=== PATIENT | female | born 1990 | race Caucasian/White ===

== ENCOUNTER → 2020-10-20 08:06 | Outpatient (BNVA) | payer OTHER, SELFPAY | PROVIDERS: Visit Provider Advanced Practice Midwife ==

== ENCOUNTER 2022-12-19 09:08 | Outpatient (AMB) | payer OTHER, SELFPAY ==
--- NOTE | 2022-12-19 09:18 | MHC.OFFVIS ---
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 Scribed for BROCK Leyva by Jennifer Torres medical insurance coder, on 12/19/2022 at 9:38 am EST. Call Center Rn Required: No Information Interpreted: non-clinical & clinical Aerodynamic Consultant: Aerodynamic Consultant Present (Aidyn) Allergies No Known Allergies Allergy (Verified 12/19/22 09:22) Is last menstrual period known: Yes Last menstrual period: 10/06/22 Post menopausal: No HPI HPI Comments History of Present Illness Details She is a premenopausal woman presenting for annual exam. She admits to eating healthy and tries to stay active with exercise. Planning future , stopped taking BC in September and hasn't had her period, only withdrawal bleed at that time. Menarche age 16, started OCP's age 17 until September for painful cycles. Unsure of cycle history baseline. Is interested in conceiving and took a at home test; neg. Currently sexually active. Does not take PNV; only probiotics. Denies pelvic pain, hirsutism, vaginal itching and irritation. Admits to acne STD screening offered; she declines. Denies family hx of breast, colon and ovarian cancer. Last pap smear 10/27/19. 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 Sexual orientation: Straight/Heterosexual Gender identity: Female Female Reproductive History Menstrual Age of Menarche: 17 Duration of menses: 3-5 days Date of last menstrual period: 10/06/22 control method: none Total pregnancies: 0 Date of last pap smear: 10/27/19 (negative) Physical Exam Vital Signs: Last Vital Signs BP 104/62 12/19/22 09:20 BMI result Body Mass Index 26.5 Const General: cooperative, healthy appearing, no acute distress, well developed and alert Orientation/consciousness: patient oriented x3 HEENT Head: Yes normal to inspection Eyes General: appearance normal, both eyes and all related structures Neck Neck: Yes normal visual inspection Thyroid: Thyroid normal Chest Chest palpation & inspection: normal inspection of the chest Breast/axilla inspection: normal inspection of the breasts (no puckering, dimpling, peau de orange, retraction, discharge, masses) Breast/axilla palpation: normal palpation of the breasts Resp Effort & Inspection: normal respiratory effort GI Inspection: Yes normal to inspection Palpation (GI): Soft to palpation (to palpation) Rectal Exam - Female: deferred General: Yes bladder normal to inspection External Female Exam: normal external appearance and normal appearance of the urethra Speculum Exam - Vagina: normal appearance of the vagina, normal palpation and normal vaginal discharge Speculum Exam - Cervix: normal appearance of the cervix and normal palpation Bimanual exam- vagina & uterus: normal palpation and normal palpation Bimanual Exam- Adnexa, other: normal adnexae and no masses Skin General skin exam: no rashes or lesions noted Neuro General: patient oriented x3 Cognition (Neuro): normal cognition Extrem General: Yes normal to inspection Psych Attitude: cooperative Thought process: Normal thought process present Assessment & Plan Assessment & Plan (1) Encounter for well woman exam: Code(s): Z01.419 - Encounter for gynecological examination (general) (routine) without abnormal findings Plan: Discussed: Current recommendations for pap smears per ASCCP guidelines Breast awareness and periodic self breast exams. Maintaining a healthy lifestyle including a well balanced diet and routine exercise. Discussed workup including labs and US to rule out PCOS. She is agreeable to plan. Labs and US ordered today. Will await results and treat accordingly. Return in 2 weeks for test results. Contact office if she has her menses. Provera use. Instructed to start PNV. Rx sent to pharmacy. All of her questions and concerns were addressed to the best of my ability. RTO in one year for AG. (2) Irregular menses: Code(s): N92.6 - Irregular menstruation, unspecified Orders: Orders 17 Hydroxyprogesterone Today L70.9 - Acne, unspecified, N92.6 - Irregular menstruation, unspecified DHEA Sulfate Today L70.9 - Acne, unspecified, N92.6 - Irregular menstruation, unspecified Follicle Stimulating Hormone Today L70.9 - Acne, unspecified, N92.6 - Irregular menstruation, unspecified, R23.2 - Flushing HCG Quantitative Today L70.9 - Acne, unspecified, N92.6 - Irregular menstruation, unspecified Prolactin Today L70.9 - Acne, unspecified, N92.6 - Irregular menstruation, unspecified Testosterone, Free/Total Today L70.9 - Acne, unspecified, N92.6 - Irregular menstruation, unspecified Thyroid Stimulating Hormone Today L70.9 - Acne, unspecified, N92.6 - Irregular menstruation, unspecified US pelvic and transvaginal Today L70.9 - Acne, unspecified, N92.6 - Irregular menstruation, unspecified Pap Smear Today Z01.419 - Encounter for gynecological examination (general) (routine) without abnormal findings Medications: New PNV,calcium [id number] acid 27 mg iron- 1 mg ( Vitamins Plus Low Iron) 1 tab PO DAILY 90 tabs 4RF Coding Level of Care Code Est Pt Prev Care 18-39y(23532) Diagnoses Encounter for well woman exam Z01.419 Irregular menses N92.6
[2022-12-19 09:20] VITALS: BP 104/62; BMI 26.5
== END 2022-12-19 09:54 | disposition home or self-care (01) ==
LOC: HO.HWS 09:08
PROVIDERS: PCP Internal Medicine; Visit Provider Advanced Practice Midwife
DX: Z01.419 Encounter for gynecological examination (general) (routine) without abnormal findings (principal); N92.6 Irregular menstruation, unspecified
CPT/HCPCS: 99395

== ENCOUNTER 2022-12-19 09:08 | Outpatient (REF) | payer OTHER, SELFPAY | END 2022-12-19 09:09 | disposition home or self-care (01) | LOC: HO.LNP 09:08 | PROVIDERS: PCP Internal Medicine; Visit Provider Advanced Practice Midwife | DX: Z01.419 Encounter for gynecological examination (general) (routine) without abnormal findings (principal); N92.6 Irregular menstruation, unspecified | CPT/HCPCS: 88142 ==

== ENCOUNTER 2022-12-19 10:00 | Outpatient (REF) | payer OTHER, SELFPAY ==
[2022-12-19 15:10] LABS: HCG Quantitative < 2 mIU/mL
[2022-12-19 15:21] LABS: Thyroid Stimulating Hormone 1.04 uIU/mL (0.32-4.0)
[2022-12-21 09:13] LABS: DHEA Sulfate 118 mcg/dL (14-349); Follicle Stimulating Hormone 6.8 mIU/mL; Prolactin 8.1 ng/mL
[2022-12-26 14:43] LABS: Testosterone, Free 1.2 pg/mL (0.1-6.4); Testosterone, Total 15 ng/dL (2-45)
== END 2022-12-19 10:01 | disposition home or self-care (01) ==
LOC: HO.LAB 10:00
PROVIDERS: PCP Internal Medicine; Visit Provider Advanced Practice Midwife
DX: L70.9 Acne, unspecified (principal); N92.6 Irregular menstruation, unspecified; R23.2 Flushing
CPT/HCPCS: 36415; 82627; 83001; 83498; 84146; 84402; 84403; 84443; 84702

== ENCOUNTER 2022-12-27 16:20 | Outpatient (REF) | payer OTHER, SELFPAY ==
--- NOTE | ~2022-12-27 | US_ITS ---
EXAMINATION: US PELVIS CLINICAL INFORMATION: Irregular menstruation. COMPARISON: None available. TECHNIQUE: Ultrasound of the pelvis is performed using both transabdominal and transvaginal transducers along with Doppler. Transvaginal imaging is performed due to inadequate visualization transabdominally. FINDINGS: Uterus: The uterus is anteverted and measures 8.2 x 3.2 x 4.2 cm. Nabothian cysts. The double wall endometrial thickness is 5 mm. The uterus is smooth in contour and has normal myometrial echogenicity. No visible fibroid. Adnexa: Both ovaries are visualized. There is normal color flow to the adnexa. There is no ovarian torsion. There is no pelvic ascites or fluid collection. Right ovary measures 2.4 x 1.5 x 1.5 cm. Volume 2.8 mL. Left ovary measures 2.8 x 1.6 x 1.3 cm. Volume 3.1 mL. 1.1 cm corpus luteum. Trace free fluid around the left ovary is likely physiologic. No follow-up imaging is recommended. US/US pelvic and transvaginal IMPRESSION: The endometrial stripe is normal in thickness. The uterus and ovaries appear normal.
== END 2022-12-27 16:21 | disposition home or self-care (01) ==
LOC: HO.US 16:20
PROVIDERS: Visit Provider Advanced Practice Midwife
DX: N92.6 Irregular menstruation, unspecified (principal); L70.9 Acne, unspecified
CPT/HCPCS: 76830; 76856

== ENCOUNTER 2023-01-01 07:46 | Outpatient (AMB) | payer OTHER, SELFPAY ==
--- NOTE | 2023-01-01 07:46 | A.OFFVIS_ITS ---
Intake Intake Visit Reasons: TV Labs results Intake Note: cell # [phone] The patient agreed to use of a medical lab director during this encounter. Scribed for BROCK Leyva by Jennifer Torres, medical lab director, on 01/01/2023 at 8:00 am EST. Allergies No Known Allergies Allergy (Verified 01/01/23 07:47) Is last menstrual period known: Yes Last menstrual period: 10/06/22 HPI HPI Comments History of Present Illness Details Doximity live video 8:00 am - 8:07 am. Phone Call due to Covid-19 Pandemic. Video was utilized. She presents via phone/live video to discuss lab results regarding irregular menses. LMP 10/06/22. Hx of irregular menses. Menarche age 16, strted BC age 17 due to p ainful menses, unsure of baseling for cycle history with intermediate accountant BC use. Stopped taking Faye BC in August, has not had a menses since September. She is taking PNV. test was negative last visit. No changes in stress levels or recent surgeries. 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 Sexual orientation: Straight/Heterosexual Gender identity: Female Female Reproductive History Menstrual Age of Menarche: 17 Date of last menstrual period: 10/06/22 Physical Exam Const General: cooperative, healthy appearing, comfortable, no acute distress, well developed, alert and awake Results Reviewed Results Reviewed: Laboratory Tests 12/19/22 12/19/22 12/19/22 10:18 10:18 10:18 TSH 1.04 FSH 6.8 Prolactin 8.1 Total Testosterone 15 Fr Testosterone Dialys 1.2 DHEA Sulfate 118 Beta HCG, Quant < 2 17-Hydroxyprogesterone 21 Assessment & Plan Assessment & Plan (1) Irregular menses: Code(s): N92.6 - Irregular menstruation, unspecified Plan: Discussed: Lab results; all normal. Recheck home test then start Provera. RX sent to pharmacy. Referral sent to [facility] infertility specialist; call insurance for coverage. Monitor menses with Naveen pau and can also use ovulation predictor kits. All of her questions and concerns were addressed to the best of my ability and shared decision making. She is agreeable to plan of care. (2) Encounter to discuss test results: Code(s): Z71.2 - Person consulting for explanation of examination or test findings Orders: Referrals Infertility Reproductive Referral (female) N92.6 - Irregular menstruation, unspecified Medications: New medroxyprogesterone (Provera) 10 mg PO DAILY 10 tabs 0RF Telehealth Telehealth Location of provider rendering services: practice address Location of patient: other Patient Identification confirmed using: Name, : Yes Telehealth method: video Patient verbally consented to treatment: Yes Patient verbally consented to billing insurance company: Yes Patient informed of any privacy concerns related to visit: Yes Coding Level of Care Code Tele Est Pt Level 3 (75253) Diagnoses Irregular menses N92.6 Encounter to discuss test results Z71.2
== END 2023-01-01 08:27 | disposition home or self-care (01) ==
LOC: HO.HWS 07:46
PROVIDERS: PCP Internal Medicine; Visit Provider Advanced Practice Midwife
DX: N92.6 Irregular menstruation, unspecified (principal); Z71.2 Person consulting for explanation of examination or test findings
CPT/HCPCS: 99213

== ENCOUNTER → 2023-01-01 07:46 | Outpatient (BNVA) | payer OTHER, SELFPAY | PROVIDERS: PCP Internal Medicine; Visit Provider Advanced Practice Midwife ==

== ENCOUNTER 2023-07-18 14:27 | Outpatient (REF) | payer OTHER, SELFPAY ==
--- NOTE | ~2023-07-18 | US_ITS ---
EXAMINATION: US OBSTETRICAL ULTRASOUND CLINICAL INFORMATION: Irregular menses; for confirmation of viability. COMPARISON: Pelvic ultrasound dated 12/30/2022. LMP: 05/25/2023. Gestational age by maternal dates is 7 weeks and 5 days. Estimated date of delivery by maternal dates is 02/24/2024. TECHNIQUE: Ultrasound of the maternal pelvis is performed using transabdominal transducer. M-mode Doppler is also performed. FINDINGS: There is a single intrauterine gestational sac with visible yolk sac, embryo/fetus, and cardiac activity. There is no significant subchorionic hemorrhage or hematoma. HR: 120 beats per minute. CRL (crown rump length): 0.51 cm (6 weeks and 2 days +/- 4 days). FABIO (estimated date of delivery): 03/10/2024 +/- 4 days. MATERNAL ADNEXA: The right maternal ovary measures 2.7 x 1.4 x 1.5 cm. The left maternal ovary measures 4.0 x 3.3 x 4.2 cm. The left ovary contains a 3.4 x 2.6 x 2.9 cm benign, simple cyst, for which no imaging follow-up is recommended. There is no significant maternal adnexal mass. No maternal pelvic ascites. US/US OB <= 14 weeks fetus IMPRESSION: 1. Single intrauterine gestation with ultrasound gestational age of 6 weeks and 2 days +/- 4 days. 2. Estimated date of delivery is 03/10/2024 +/- 4 days. 3. No maternal adnexal mass or pelvic ascites.
== END 2023-07-18 14:28 | disposition home or self-care (01) ==
LOC: HO.US 14:27
PROVIDERS: PCP Internal Medicine; Visit Provider Advanced Practice Midwife
DX: Z34.91 Encounter for supervision of normal pregnancy, unspecified, first trimester (principal); Z3A.01 Less than 8 weeks gestation of pregnancy
CPT/HCPCS: 76801

== ENCOUNTER 2023-08-08 14:26 | Outpatient (AMB) | payer OTHER, SELFPAY ==
[2023-08-08 14:37] VITALS: BP 102/66; BMI 27.1
--- NOTE | 2023-08-08 14:37 | A.OFFVIS_ITS ---
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 That dating ultrasound was done on July 18 which yielded a of 6 weeks and 2 days yielding an FABIO of 10 9 24 which was 1 week different from her LMP FABIO I told her that we would probably use the FABIO by ultrasound in this case. She had a history of irregular periods before she went on pills for many many many years and then when she went off the pills her periods did not return for a while but they did return in December and then she had a referral to [facility] and went and had 1 visit there and was just starting the process just to see if she was healthy though she really was hoping not to go through all of the infertility process. 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 She has come to [facility] before and has seen Juana Vaca for all of her rotoprinter visits. Her intention was to come here and then deliver at [facility]. Discussed that there will be many ultrasounds and tests that need to be done and that timing of these is important and needs to be ordered soon so that balls do not get dropped. Her 's genetic testing indicated that there were some issues that if she also showed the same genetic issues there would be important issues to discuss genetically. 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 In addition I am placing the order for the nuchal translucency ultrasound at 12 weeks I also reviewed all the other practices at [facility] and that she also has the [facility] of [facility] or [facility] practice as well but given that she told me about the genetics issue at the very least she needs to see [facility] for consultation and get the screening process started. Her next visit will be with the RNs for the intake and constance del valleroro can be with the provider of her choice for the OB intake visit. At the end of the visit I asked her permission if I could see if I could auscultate heart and I was able to hear it at 9 weeks and 3 days. She was happy to record it. She feels she eats well and she exercise and works out every morning though she has been more tired she has not having any issues with constipation and the nausea is tolerable she just sleeps a lot. 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 Sexual orientation: Straight/Heterosexual Gender identity: Female Female Reproductive History Menstrual Age of Menarche: 17 Duration of menses: 6-7 days Date of last menstrual period: 05/25/23 control method: none Total pregnancies: 1 Date of last pap smear: 12/24/22 (negative) History of abnormal pap smear: No Physical Exam Vital Signs: Last Vital Signs BP 102/66 08/08/23 14:37 BMI result Body Mass Index 27.1 Results AMB Test Urine AMB Test Urine Positive Last Edit by LAURITA Watson on 08/08/23 14:45 Results Reviewed Results Reviewed: Laboratory Last Values [facility] Positive 08/08/23 14:45 Patient: Luna Carlson MR#: [id number] : 1990 Acct:[id number] Age/Sex: 32 / F ADM Date: 07/18/23 Loc: HO.US Attending Dr: Juana Vaca CNM Ordering Physician: Juana Vaca CNM Date of Service: 07/18/23 Procedure(s): US OB <= 14 weeks fetus Accession Number(s): [id number] cc: Juana Vaca CNM; Carly Gamez MD~ EXAMINATION: US OBSTETRICAL ULTRASOUND CLINICAL INFORMATION: Irregular menses; for confirmation of viability. COMPARISON: Pelvic ultrasound dated 12/30/2022. LMP: 05/25/2023. Gestational age by maternal dates is 7 weeks and 5 days. Estimated date of delivery by maternal dates is 02/24/2024. TECHNIQUE: Ultrasound of the maternal pelvis is performed using transabdominal transducer. M-mode Doppler is also performed. FINDINGS: There is a single intrauterine gestational sac with visible yolk sac, embryo/fetus, and cardiac activity. There is no significant subchorionic hemorrhage or hematoma. HR: 120 beats per minute. CRL (crown rump length): 0.51 cm (6 weeks and 2 days +/- 4 days). FABIO (estimated date of delivery): 03/10/2024 +/- 4 days. MATERNAL ADNEXA: The right maternal ovary measures 2.7 x 1.4 x 1.5 cm. The left maternal ovary measures 4.0 x 3.3 x 4.2 cm. The left ovary contains a 3.4 x 2.6 x 2.9 cm benign, simple cyst, for which no imaging follow-up is recommended. There is no significant maternal adnexal mass. No maternal pelvic ascites. US/US OB <= 14 weeks fetus IMPRESSION: 1. Single intrauterine gestation with ultrasound gestational age of 6 weeks and 2 days +/- 4 days. 2. Estimated date of delivery is 03/10/2024 +/- 4 days. 3. No maternal adnexal mass or pelvic ascites. Dictated By: Johnathon Alvarez MD Signed By: <Electronically signed by Johnathon Alvarez MD in OV> 07/22/23 0959 DD/ 1449 Assessment & Plan Assessment & Plan (1) Early stage of : Comment: Patient had been referred to [facility] she went and before full testing was done she became . Ultrasound for dating ordered by BM done 07/18/2023 yielded 6 weeks and to sevens with an FABIO of 03/10/2024. Patient states that her 's genetic testing revealed some issues for which she would need to have testing and counseling as well. We will refer to genetic counseling in order panoramic and nuchal translucency ultrasound a sap so done in a timely fashion. Patient may be seeking care at [facility]. Code(s): Z34.90 - Encounter for supervision of normal , unspecified, unspecified trimester (2) Irregular menses: Code(s): N92.6 - Irregular menstruation, unspecified Plan Patient is here as a consult visit she had spoken with 1 of the nurses and then Juana ordered an ultrasound for dating. That dating ultrasound was done on July 18 which yielded a of 6 weeks and 2 days yielding an FABIO of 10 9 24 which was 1 week different from her LMP FABIO I told her that we would probably use the FABIO by ultrasound in this case. She had a history of irregular periods before she went on pills for many many many years and then when she went off the pills her periods did not return for a while but they did return in December and then she had a referral to [facility] and went and had 1 visit there and was just starting the process just to see if she was healthy though she really was hoping not to go through all of the infertility process. 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 She has come to [facility] before and has seen Juana Vaca for all of her rotoprinter visits. Her intention was to come here and then deliver at [facility]. Discussed that there will be many ultrasounds and tests that need to be done and that timing of these is important and needs to be ordered soon so that balls do not get dropped. Her 's genetic testing indicated that there were some issues that if she also showed the same genetic issues there would be important issues to discuss genetically. 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 In addition I am placing the order for the nuchal translucency ultrasound at 12 weeks I also reviewed all the other practices at [facility] and that she also has the option of seeking out a [facility] practice or [facility] practice as well but given that she told me about the genetics issue at the very least she needs to see [facility] for consultation and get the screening process started. Her next visit will be with the RNs for the intake and thereafter can be with the provider of her choice for the OB intake visit. At the end of the visit I asked her permission if I could see if I could auscultate heart and I was able to hear it at 9 weeks and 3 days. She was happy to record it. She feels she eats well and she exercise and works out every morning though she has been more tired she has not having any issues with constipation and the nausea is tolerable she just sleeps a lot. ----I reviewed her feelings about the , I reviewed her menstrual hx, and ob hx, and past medical hx. I reviewed goals of eating well, healthy, avoiding toxins and medications. Goals of moderate wt gain, and continuing to be active. Walking is good exercise. She should speak to any other prescribing providers involved in her care to see if any meds that are prescribed should be continued. drinking plenty of water is a good goal. I reviewed normal early symptoms, and next steps involved in care here. I reviewed that now deliveries are taking place elsewhere. Patient had had irregular periods many many years ago had been on control pills for years and when she went off control pills did not get her regular. Then she started getting her period in December and they were became normal from December through June. She was just in the process of starting testing at [facility] and her had already gotten the genetic screening and she had not yet done it and she became she was not really sure if it would continue just because she is cautious and her mother lost a at 18 weeks. So she was waiting to see how things would go. She called our office and spoke with the nurse and then an ultrasound was ordered that was done on 07/18/2023 that gave an FABIO at least a week different from her suspected FABIO given this we will use the ultrasound FABIO of 03/10/2024 which makes her 9 weeks and 3 days today. She says her had gotten the genetic screening part and there were some things that showed up that indicated that if she had the same genetic issues they would need to be discussed at genetic counseling. Given this and the fact that she is now 9 weeks and 3 days and time is of the essence I am going to refer her to [facility] genetic counseling and order a panoramic for her and a nuchal translucency and next visit will be with the RN for the intake and then a PE with whoever she chooses to see I am also giving her a list of the [facility] practices as she had already thought about starting care here and then going to [facility]. 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
== END 2023-08-08 15:52 | disposition home or self-care (01) ==
LOC: HO.HWSM 14:26
PROVIDERS: PCP Internal Medicine; Visit Provider Advanced Practice Midwife
DX: Z34.90 Encounter for supervision of normal pregnancy, unspecified, unspecified trimester (principal); N92.6 Irregular menstruation, unspecified
CPT/HCPCS: 99213

== ENCOUNTER → 2023-08-08 14:26 | Outpatient (BNVA) | payer OTHER, SELFPAY | PROVIDERS: PCP Internal Medicine; Visit Provider Advanced Practice Midwife ==

== ENCOUNTER 2023-08-14 13:59 | Outpatient (REF) | payer OTHER, SELFPAY ==
[2023-08-14 15:36] LABS: Hematocrit 33.6 % (37.0-47.0); Hemoglobin 11.5 g/dl (12.0-16.0); Mean Corpuscular HGB Conc 34.2 g/dl (31.0-35.0); Mean Corpuscular Hemoglobin 29.5 pg (27.0-33.0); Mean Corpuscular Volume 86.2 fL (80.0-98.0); Mean Platelet Volume 10.7 fL (9.4-12.3); Platelet Count 336 X10*3/uL (160-400); Red Cell Distribution Width 12.4 % (11.0-16.0); White Blood Count 13.4 X10*3/uL (4.8-10.8)
[2023-08-14 16:01] LABS: Amphetamine Screen Urine Not Detected (Not Detect); Barbiturates, Urine Not Detected (Not Detect); Cannabinoid Screen Urine Not Detected (Not Detect); Cocaine Screen Urine Not Detected (Not Detect); Fentanyl, urine Not Detected (Not Detect); Opiate Screen Urine Not Detected (Not Detect); Phencyclidine Screen Urine Not Detected (Not Detect)
[2023-08-14 16:19] LABS: Benzodiazepines Screen Urine Not Detected (Not Detect)
[2023-08-15 03:49] LABS: Syphilis Screen Nonreactive (Nonreactive)
[2023-08-15 04:31] LABS: HBsAGNum1 0.42 S/CO (0.00-0.99); HIV AB/AG Nonreactive (Nonreactive); HIV Num 1 0.04 S/CO (0.00-0.99); Hepatitis B Surface Antigen Negative (Negative); ~HepC Num1 0.06 S/CO (0.00-0.79); ~Hepatitis C Antibody Nonreactive (Nonreactive)
[2023-08-16 03:39] LABS: Rubella IgG Antibody 1.52 Index
[2023-08-26 21:43] LABS: CF Ethnicity NG; Cystic Fibrosis NEGATIVE (NEGATIVE)
== END 2023-08-14 14:00 | disposition home or self-care (01) ==
LOC: HO.LAB 13:59
PROVIDERS: PCP Internal Medicine; Visit Provider Advanced Practice Midwife
DX: Z34.91 Encounter for supervision of normal pregnancy, unspecified, first trimester (principal); Z3A.10 10 weeks gestation of pregnancy; Z79.899 Other long term (current) drug therapy
CPT/HCPCS: 80307; 81220; 85027; 86762; 86780; 86787; 86803; 86850; 86900; 87086; 87340; 87389; 99212

== ENCOUNTER 2023-08-14 13:59 | Outpatient (AMB) | payer OTHER, SELFPAY ==
--- NOTE | 2023-08-14 14:04 | A.OFFVISPN_ITS ---
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 Allergies No Known Allergies Allergy (Verified 08/08/23 14:43) Medication List - Last Reconciled 08/14/23 by Camryn Rodriguez PNV,calcium 84-yhgw-woaha acid 27 mg iron- 1 mg ( Vitamins Plus Low Iron) 1 tab PO DAILY sertraline 50 mg PO DAILY Is last menstrual period known: Yes Last menstrual period: 05/25/23 Post menopausal: No Patient : Yes [facility] Medical History (Updated 08/14/23 @ 14:43 by Camryn Rodriguez) Encounter for supervision of normal first , unspecified trimester Irregular menses History of depression History of anxiety Family History (Updated 08/14/23 @ 14:14 by Camryn Rodriguez) Maternal Grandfather Colon cancer Type 1 diabetes mellitus Family/Other Breast cancer Father Graves disease Mother Acute anxiety Social History (Updated 08/14/23 @ 14:18 by Camryn Rodriguez) Household Members: Spouse Both parents involved: Yes Housing: House Are you a primary nonfarm animal caretaker to a significant other at home: No Do you presently have visiting nurse or other home services: No 75 years or older and lives alone: No Alcohol intake: former Comment: stopped with dx Patient Tobacco Use Status: Never used Tobacco Agree to transfusion: Yes service: No 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 Current occupational exposures/hazards: No Sexual orientation: Straight/Heterosexual Gender identity: Female Female Reproductive History Menstrual Age of Menarche: 16 Duration of menses: 3-5 days Date of last menstrual period: 05/25/23 control method: pills Total pregnancies: 1 Full term: 0 Premature: 0 Number of Living Children: 0 Ab induced: 0 Ab spontaneous: 0 Ectopics: 0 Multiple births: 0 History of abnormal pap smear: No History of STI: No History History 1 Elective abortions 0 Para 0 Spontaneous abortions 0 Hx # Term Pregnancies 0 Ectopic pregnancies 0 Hx # Pregnancies 0 Multiple births 0 History Other: First Education First Trimester Education Checklist Plans/Education - by Trimester Counseled: Yes HIV and other routine tests: discussed Infectious disease exposure: chicken pox immunity discussed and hepatitis risk discussed Influenza vaccine: discussed Nutrition and weight gain counseling: special diet: discussed Sexual activity: discussed Exercise: discussed Tobacco use: No Alcohol use: No Substance use: No Environmental/home/work hazards: discussed Domestic violence: discussed Travel: discussed Seatbelt use: discussed Toxoplasmosis precautions (cats/raw meat): discussed danger signs: Yes education packet: diet and weight gain, fish and mercury intake, caffeine use, exercise and activity, work issues, sexual activity, x-ray exposure, medication use, toxoplasmosis precautions, sauna/hot tub use and dental care Mental health: discussed Questionnaire History History : 1 Visit FABIO Calculator Estimated Delivery Date Method Current WG Current Estimate 03/10/24 Ultrasound #1 10w 1d Other Estimates 02/29/24 LMP (Certain) 11w 4d Expected Delivery Route/Plan OB Visit Log Initial Weight: 138 lb Date -?-?-?-?-?-?-?-?-?-?-?-?- EGA Weight Gest Week Fundal Ht Present FHR move Efface % Edema BP PrePreg We Weight GTT -?-?-?-?-?-?-?-?-?-?-?-?- Glucose LV Protein Blood Type 08/14/23 -?-?-?-?-?-?-?-?-?-?-?-?- 10w 1d 150 lb (+12 lb) 150 l b -?-?-?-?-?-?-?-?-?-?-?-?- Notes Visit Date: 08/14/23 Last Updated by: Camryn Coombseric Eason 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 She is a 32 yo with LMP 05/25/23 and FABIO 03/03/24 GA 11w2d. US on 07/18/23 at 6w2d gives FABIO 03/10/24 and [id number]. Pt was given the folder. We discussed danger signs, MD availability 23/12 and how to reach on-call provider on weekends, holidays and nights for urgent issues. Pt advised all deliveries will be at [facility] since our [facility] has closed. In addition, ultrasounds will also take place at [facility]. labs were ordered and pt will have them done today. Next visit will be for OB PE. Pt did sign records release as she is thinking about transferring her care to [facility]. She does not know which practice at [facility] at this time. Yumi is scheduled for Genetics consult at [facility] 08/19/23 @ 1400 which she is aware of already. Pt and her were seen by [facility] for one visit. Her started genetic testing and some issues were found. Yumi found out she was before she started testing and was never tested. Letter from [facility] in pt's chart. First trimester education reviewed. Pt verbalizes understanding and agrees with plan. No further questions. Initial Infection History & Risk Profile History of STDs: No HIV risk evaluation: low risk Hepatitis B risk evaluation: low risk Patient or partner has history of Genital Herpes: No Varicella/chicken pox status: previous disease Genetic Screening & Turf Grower Genetic Screening/Teratology Counseling - Includes patient, baby's father, or anyone in either family with: 1. Patient's age 35 years or older as of estimated date of delivery: No 2. Thalassemia (Belgian, Yakut, Mediterranean, or Background); MCV less than 80: No 3. Neural Tube Defect (Meningomyelocele, Spina Bifida, or Anencephaly): No 4. Congenital Heart Defect: No 5. Down Syndrome: No 6. Adalberto-Sachs (Ashkenazi Baptist, Cajun, Albanian Fijian): No 7. Hue Disease (Ashkenazi Baptist): No 8. Familial Dysautonomia (Ashkenazi Baptist): No 9. Sickle Cell Disease or Trait (): No 10. Hemophilia or other blood disorders: No 11. Muscular Dystrophy: No 12. Cystic Fibrosis: No 13. Horace's Chorea: No 14. Intellectual disability/Autism: No 15. Other inherited genetic or chromosomal disorder: No 16. Maternal Metabolic Disorder (EG,TYPE 1 Diabetes, PKU): No 17. Patient or baby's father had a child with defects not listed above: No 18. Recurrent loss or a stillbirth: No 19. Medications (including supplements, vitamins, herbs or otc drugs)/illicit/recreational drugs/alcohol since last menstrual period: No 20. Any other: No Infection History 1. Live with someone with TB or exposed to TB: No 2. Rash or viral illness since last menstrual period: No 3. Hepatitis B,C: No Other (see comments) Source: [employer] Coding Level of Care Code Established Pt [place] Patient Type Established History Problem Focused Medical Decision Making Low Complexity Diagnoses Encounter for supervision of normal first , unspecified trimester Z34.00 Time Spent (min) 60 Assessment & Plan Assessment & Plan (1) Encounter for supervision of normal first , unspecified trimester: Code(s): Z34.00 - Encounter for supervision of normal first , unspecified trimester Category: Medical Orders: Orders Complete Blood Count no Diff Today Z32.01 - Encounter for test, result positive, Z34.00 - Encounter for supervision of normal first , unspecified trimester Hepatitis C Antibody Today Z32.01 - Encounter for test, result positive, Z34.00 - Encounter for supervision of normal first , unsp ecified trimester Screen Today Z32.01 - Encounter for test, result positive, Z34.00 - Encounter for supervision of normal first , unspecified tri mester Rubella IgG Antibody Today Z32.01 - Encounter for test, result positive, Z34.00 - Encounter for supervision of normal first , unspecified trimester Syphilis Screen Today Z32.01 - Encounter for test, result positive, Z34.00 - Encounter for supervision of normal first , unspecified trimester Hepatitis B Surface Antigen Today Z32.01 - Encounter for test, result positive, Z34.00 - Encounter for supervision of normal first , unspecified trimester Varicella IgG Antibody Today Z32.01 - Encounter for test, result positive, Z34.00 - Encounter for supervision of normal first , unspecified trimester Urine Culture Today Z32.01 - Encounter for test, result positive, Z34.00 - Encounter for supervision of normal first , unspecified trimester HIV Ab/Ag Today Z32.01 - Encounter for test, result positive, Z34.00 - Encounter for supervision of normal first , unspecified trimester Drug Screen Urine Today Z32.01 - Encounter for test, result positive, Z34.00 - Encounter for supervision of normal first , unspecified trimester CF Carrier Screen Today Z32.01 - Encounter for test, result positive, Z34.00 - Encounter for supervision of normal first , unspecified trimester
[2023-08-14 14:08] VITALS: BMI 27.4
== END 2023-08-14 15:12 | disposition home or self-care (01) ==
LOC: HO.HWS 13:59
PROVIDERS: PCP Internal Medicine; Visit Provider Advanced Practice Midwife
DX: Z34.00 Encounter for supervision of normal first pregnancy, unspecified trimester (principal)
CPT/HCPCS: 25942

== ENCOUNTER 2023-08-26 14:38 | Outpatient (REF) | payer OTHER, SELFPAY ==
[2023-08-27 05:34] LABS: CT PCR NOT DETECTED (Not Detect.); NG PCR NOT DETECTED (Not Detect.)
[2023-08-27 10:20] LABS: BV Int Neg Control Negative (Negative); BV Int Pos Control Positive (Positive)
== END 2023-08-26 14:39 | disposition home or self-care (01) ==
LOC: HO.LNP 14:38
PROVIDERS: PCP Internal Medicine; Visit Provider Advanced Practice Midwife
DX: Z34.91 Encounter for supervision of normal pregnancy, unspecified, first trimester (principal); Z20.2 Contact with and (suspected) exposure to infections with a predominantly sexual mode of transmission; Z3A.11 11 weeks gestation of pregnancy
CPT/HCPCS: 0353U; 87480; 87510; 87660; 99212

== ENCOUNTER 2023-08-26 14:38 | Outpatient (AMB) | payer OTHER, SELFPAY ==
--- NOTE | 2023-08-26 14:44 | A.OFFVISPN_ITS ---
Intake Vital Signs 08/26/23 14:46 Height 5 ft 2 in Weight 145 lb BMI 26.5 BP 102/54 L Intake Visit Reasons: ob/pe [employer] Required: No Information Interpreted: non-clinical & clinical Equip Tech: Equip Tech Present (Geo) Allergies No Known Allergies Allergy (Verified 08/26/23 14:47) Medication List - Last Reconciled 08/26/23 by Shirley Tobin CNM PNV,calcium 13-dyyh-ijfas acid 27 mg iron- 1 mg ( Vitamins Plus Low Iron) 1 tab PO DAILY sertraline 50 mg PO DAILY Is last menstrual period known: Yes Last menstrual period: 05/25/23 Post menopausal: No Patient : Yes [facility] Medical History (Updated 08/26/23 @ 15:56 by Shirley Tobin CNM) Encounter for supervision of normal first , unspecified trimester Irregular menses History of depression History of anxiety Family History Maternal Grandfather Colon cancer Type 1 diabetes mellitus Family/Other Breast cancer Father Graves disease Mother Acute anxiety Social History Household Members: Spouse Both parents involved: Yes Housing: House Are you a primary care support representative to a significant other at home: No Do you presently have visiting nurse or other home services: No 75 years or older and lives alone: No Alcohol intake: former Comment: stopped with dx Patient Tobacco Use Status: Never used Tobacco Agree to transfusion: Yes service: No 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 Current occupational exposures/hazards: No Sexual orientation: Straight/Heterosexual Gender identity: Female Female Reproductive History Menstrual Age of Menarche: 16 Date of last menstrual period: 05/25/23 control method: none Total pregnancies: 1 Date of last pap smear: 12/24/22 (negative) History History 1 Elective abortions 0 Para 0 Spontaneous abortions 0 Hx # Term Pregnancies 0 Ectopic pregnancies 0 Hx # Pregnancies 0 Multiple births 0 Questionnaire History History : 1 [place] Depression [place] Depression Scale I have been able to laugh and see the funny side of things: As much as I always could I have looked forward with enjoyment to things: As much as I ever did I have blamed myself unnecessarily when things went wrong: Not very often I have been anxious or worried for no reason: Yes, sometimes I have felt scared of panicky for no very good reason at all: No, not so much Things have been getting on top of me: No, most of the time I have coped quite well I have been so unhappy that I have had difficulty sleeping: No, not at all I have felt sad or miserable: No, not at all I have been so unhappy that I have been crying: No, never The thought of harming myself has occurred to me: Never 5 PHQ Assessment Billing PHQ Assessment Tool: PHQ Assessment 87381 Visit FABIO Calculator Estimated Delivery Date Method Current WG Current Estimate 03/10/24 Ultrasound #1 11w 6d Other Estimates 02/29/24 LMP (Certain) 13w 2d Expected Delivery Route/Plan Specific Issues/Plans OB Problem List: 32yr. old ? ? G1 ?P0 ? ? ?LMP: EDC: 03/10/24, ?by 1st tri u/s ? ? ?Blood type: a pos Problem List: 1. Infertility, had just started workup when she got 's genetic screens were positive for 3 issues that she is getting evaluated for a genetics at [facility] currently. They are anxious about the possible results but will see.... Testing: Panorama/and or First Tri screen: ? ?risk (has had genetic counseling and will be getting special screens secondary to partner positive testing with infertility screens) NT scan:pending AFP: FAS: Glucose: early ? 28 wk glucose: ? CBC 1st Tri: ? 28 wk. CBC: GBS: Vaccinations: Flu: Covid: Tdap: Education/Services WIC: CBE: Breast feeding classes: Social Supports/Stressors: Living situation: Supports: Work/school: Transportation: Has her own transportation Labor, and Concerns: Labor support: Plan: Feeding Plans: Is considering breast and bottle discussed considering breast at the start and latch. control: OB Visit Log Initial Weight: 138 lb Date -?-?-?-?-?-?-?-?-?-?-?-?- EGA Weight Gest Week Fundal Ht Present FHR move Efface % Edema BP PrePreg We Weight GTT -?-?-?-?-?-?-?-?-?-?-?-?- Glucose LV Protein Blood Type 08/14/23 -?-?-?-?-?-?-?-?-?-?-?-?- 10w 1d 150 lb (+12 lb) 150 l b -?-?-?-?-?-?-?-?-?-?-?-?- 08/26/23 -?-?-?-?-?-?-?-?-?-?-?-?- 11w 6d 145 lb (+7 lb) 12 170 102/54 145 lb -?-?-?-?-?-?-?-?-?-?-?-?- Notes Visit Date: 08/26/23 Last Updated by: Shirley Tobin CNM Patient is here for a visit at the [facility]. She is here for her OB physical today she has not having any major issues at all she is just tired but she says she is tired person and is tired all the time she has had her thyroid checked in the past many times and it has always a fine. She had the nurse intake visit and she has her nuchal translucency ultrasound scheduled for Friday. As previously discussed at previous visits she had initiated infertility workup and is part of that her had had his genetic blood test done and she had not had hers done yet. His indicated that there was increased risks for some challenges and so she had along with him a genetics consult at [facility] that we arranged and she is going to be getting her blood work done and is awaiting those results she says she has an anxious person and does have anxiety about the possible results especially since some of them can contribute to schizophrenia however she is going to try and not worry about it until she sees if there is something to worry about because if her testing is negative then the will be anything to worry about. She says she is also getting full genetic screening as part of this evaluation so the panorama will not be done through our lab. Accordingly she has not been able to think about where she might want to receive care and delivery because the decision may be made for her depending on the outcomes of any of this genetic evaluation. She will cross that bridge later. I reviewed her normal blood test findings thus far. FHT was strong and steady at 170. Physical exam was within normal limits slightly limited by physical tension with pelvic but within normal limits. Discussed the challenges of awaiting results of testing that can raising anxiety and the lack of control 1 has over outcomes. She is planning on having the same attitude about as well in that she knows it will be mostly out of her control and she is hoping for a healthy mother and baby. We will see her in 4 weeks and by then she will of had her nuchal translucency and genetic testing and follow-up with genetics as well. 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 She is a 32 yo with LMP 05/25/23 and FABIO 03/03/24 GA 11w2d. US on 07/18/23 at 6w2d gives FABIO 03/10/24 and [id number]. Pt was given the folder. We discussed danger signs, MD availability 23/12 and how to reach on-call provider on weekends, holidays and nights for urgent issues. Pt advised all [place] will be [place] [facility] [place] [facility] [place] closed. In addition, ultrasounds will also take place at [facility]. labs were ordered and pt will have them done today. Next visit will be for OB PE. Pt did sign records release as she is thinking about transferring her care to [facility]. She does not know which practice at [facility] at this time. Yumi is scheduled for Genetics consult at [facility] 08/19/23 @ 1400 which she is aware of already. Pt and her were seen by [facility] for one visit. Her started genetic testing and some issues were found. Yumi found out she was before she started testing and was never tested. Letter from [facility] in pt's chart. First trimester education reviewed. Pt verbalizes understanding and agrees with plan. No further questions. Initial Infection History & Risk Profile History of STDs: No HIV risk evaluation: low risk Hepatitis B risk evaluation: low risk Patient or partner has history of Genital Herpes: No Varicella/chicken pox status: previous disease Genetic Screening & Mortgage Broker Genetic Screening/Teratology Counseling - Includes patient, baby's father, or anyone in either family with: 1. Patient's age 35 years or older as of estimated date of delivery: No 2. Thalassemia (Azerbaijani, Ukrainian, Mediterranean, or Background); MCV less than 80: No 3. Neural Tube Defect (Meningomyelocele, Spina Bifida, or Anencephaly): No 4. Congenital Heart Defect: No 5. Down Syndrome: No 6. Adalberto-Sachs (Ashkenazi Jainism, Cajun, Georgian [place]): No 7. Hue Disease (Ashkenazi Jainism): No 8. Familial Dysautonomia (Ashkenazi Jainism): No 9. Sickle Cell Disease or Trait (): No 10. Hemophilia or other blood disorders: No 11. Muscular Dystrophy: No 12. Cystic Fibrosis: No 13. Waldo's Chorea: No 14. Intellectual disability/Autism: No 15. Other inherited genetic or chromosomal disorder: No 16. Maternal Metabolic Disorder (EG,TYPE 1 Diabetes, PKU): No 17. Patient or baby's father had a child with defects not listed above: No 18. Recurrent loss or a stillbirth: No 19. Medications (including supplements, vitamins, herbs or otc drugs)/illicit/recreational drugs/alcohol since last menstrual period: No 20. Any other: No Infection History 1. Live with someone with TB or exposed to TB: No 2. Rash or viral illness since last menstrual period: No 3. Hepatitis B,C: No Other (see comments) Source: [employer] Exam Const Constitutional General: healthy appearing, comfortable, no acute distress, well developed and alert Nutritional Appearance: average body habitus Orientation/consciousness: patient oriented x3 Constitutional Limitations: no limitations HENNE Head: normocephalic Neck Neck: normal visual inspection Chest Chest palpation & inspection: normal inspection of the chest Breast/axilla inspection: normal inspection of the breasts and normal inspection of the axillae Breast/axilla palpation: normal palpation of the breasts and normal palpation of the axillae Resp Effort & Inspection: normal respiratory effort GI Inspection (GI): normal to inspection and No Abdominal wall edema Palpation (GI): Soft to palpation and nontender General Exam: Yes bladder normal to palpation External Female Exam: normal external appearance and normal appearance of the urethra Urethra: normal appearance of the urethra Speculum exam - vagina: normal appearance of the vagina and normal discharge Speculum Exam - Cervix: normal appearance of the cervix and No Cervical tenderness present Bimanual exam- vagina & uterus: normal bimanual exam, normal palpation, uterine size normal, bladder normal to palpation, consistency normal, normal palpation, uterine mobility normal, uterine shape normal, No Cervical tenderness present, non-tender and no cervical motion tenderness Bimanual Exam- Adnexa, other: normal adnexae, no masses, normal and No adnexal tenderness Pelvic Support: normal Coding Level of Care Code Falcon Diagnoses Encounter for supervision of normal first , unspecified trimester Z34.00 Early stage of Z34.90 Irregular menses N92.6 History of anxiety Z86.59 Assessment & Plan Assessment & Plan (1) Encounter for supervision of normal first , unspecified trimester: Code(s): Z34.00 - Encounter for supervision of normal first , unspecified trimester Category: Medical (2) Early stage of : Comment: Patient had been referred to [facility] she went and before full testing was done she became . Ultrasound for dating ordered by BM done 07/18/2023 yielded 6 weeks and to sevens with an FABIO of 03/10/2024. Patient states that her 's genetic testing revealed some issues for which she would need to have testing and counseling as well. We will refer to genetic counseling in order panoramic and nuchal translucency ultrasound a sap so done in a timely fashion. Patient may be seeking care at [facility]. Code(s): Z34.90 - Encounter for supervision of normal , unspecified, unspecified trimester Category: Medical (3) Irregular menses: Code(s): N92.6 - Irregular menstruation, unspecified Category: Medical (4) History of anxiety: Code(s): Z86.59 - Personal history of other mental and behavioral disorders Category: Medical Orders: Orders Bacterial Vaginosis Panel Today Z34.00 - Encounter for supervision of normal first , unspecified trimester CT NG by PCR Today Z34.00 - Encounter for supervision of normal first , unspecified trimester
[2023-08-26 14:46] VITALS: BP 102/54; BMI 26.5
== END 2023-08-26 15:58 | disposition home or self-care (01) ==
LOC: HO.HWSM 14:38
PROVIDERS: PCP Internal Medicine; Visit Provider Advanced Practice Midwife
DX: Z34.00 Encounter for supervision of normal first pregnancy, unspecified trimester (principal); Z34.90 Encounter for supervision of normal pregnancy, unspecified, unspecified trimester; N92.6 Irregular menstruation, unspecified; Z86.59 Personal history of other mental and behavioral disorders
CPT/HCPCS: 25942; 99213

== ENCOUNTER 2023-09-23 13:58 | Outpatient (AMB) | payer OTHER, SELFPAY ==
--- NOTE | 2023-09-23 14:05 | MHC.OFFVISPN ---
Intake Vital Signs 09/23/23 14:10 Height 5 ft 2 in Weight 152 lb BMI 27.8 BP 122/64 Intake Visit Reasons: MARTIN [employer] Manager Required: No Information Interpreted: clinical only Fire Hose Curer: Fire Hose Curer Present Allergies No Known Allergies Allergy (Verified 09/23/23 14:10) Medication List - Last Reconciled 09/23/23 by Shirley Tobin CNM PNV,calcium [id number] acid 27 mg iron- 1 mg ( Vitamins Plus Low Iron) 1 tab PO DAILY sertraline 50 mg PO DAILY Patient : Yes PFSH Medical History (Updated 09/23/23 @ 14:59 by Shirley Tobin CNM) Encounter for supervision of normal first , unspecified trimester Irregular menses History of depression History of anxiety Family History Maternal Grandfather Colon cancer Type 1 diabetes mellitus Family/Other Breast cancer Father Graves disease Mother Acute anxiety Social History Household Members: Spouse Both parents involved: Yes Housing: House Are you a primary zoo caretaker to a significant other at home: No Do you presently have visiting nurse or other home services: No 75 years or older and lives alone: No Alcohol intake: former Comment: stopped with dx Patient Tobacco Use Status: Never used Tobacco Agree to transfusion: Yes Patient : Yes service: No 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 old ? ? G1 ?P0 ? ? ?LMP: EDC: 03/10/24, ?by 1st tri u/s ? ? ?Blood type: a pos Problem List: 1. Infertility, had just started workup when she got 's genetic screens were positive for 3 issues that she is getting evaluated for a genetics at [facility] currently. They are anxious about the possible results but will see.... 2. Please see Genetics consult for many details of carrier risks, for patient and her partner both. Patient has decided that based on this she will transfer care signing record released today. MFM consult together with anatomy scan ordered for 4 weeks from now. Testing: Panorama/and or First Tri screen: ? ?risk (has had genetic counseling and will be getting special screens secondary to partner positive testing with infertility screens) NT scan:pending AFP: FAS: Glucose: early ? 28 wk glucose: ? CBC 1st Tri: ? 28 wk. CBC: GBS: Vaccinations: Flu: Covid: Tdap: Education/Services WIC: CBE: Breast feeding classes: Social Supports/Stressors: Living situation: Supports: Work/school: Transportation: Has her own transportation Labor, and Concerns: Labor support: Plan: Feeding Plans: Is considering breast and bottle discussed considering breast at the start and latch. control: OB Visit Log Initial Weight: 138 lb Date <del>?</del> EGA Weight Gest Week Fundal Ht Present FHR move Efface % Edema BP PrePreg We Weight GTT <del>?</del> Glucose LV Protein Blood Type 08/14/23 <del>?</del> 10w 1d 150 lb (+12 lb) 150 lb <del>?</del> 08/26/23 <del>?</del> 11w 6d 145 lb (+7 lb) 12 170 102/54 145 lb <del>?</del> 09/23/23 <del>?</del> 15w 6d 152 lb (+14 lb) 15 150 122/64 152 lb <del>?</del> Notes Visit Date: 09/23/23 Last Updated by: Shirley Tobin CNM Patient is here alone for her visit at 15 weeks and 6 days. She went to her genetics consult and had lots results reviewed with her. (please see the genetics consult which was scanned in and also includes in addendum from September 17 2023 there are some results still pending fact). 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 It is a treatable condition, and more research is being done. Based on this she has decided that she will transfer care to [facility] and she signing for record released today. She is leaning against amniocentesis and she is discussing it with her . I am ordering an M consult and anatomy scan for about 4 weeks pending her transfer. She herself has already called for an appointment at [facility] what is awaiting that so we will see her again in 4 weeks if the full transfer has not yet been accomplished. We discussed other decision points in the . And also where she may go for pediatric care which she is still thinking about as well as other issues that they will be dealing with if the child is affected like avoiding foods that are high in copper and managing medications etc.. 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 Paper signed today for that she is evidently very good herself. Our OB 4 weeks unless she has transferred. Visit Date: 08/26/23 Last Updated by: Shirley Tobin CNM Patient is here for a visit at the [facility]. She is here for her OB physical today she has not having any major issues at all she is just tired but she says she is tired person and is tired all the time she has had her thyroid checked in the past many times and it has always a fine. She had the nurse intake visit and she has her nuchal translucency ultrasound scheduled for Friday. As previously discussed at previous visits she had initiated infertility workup and is part of that her had had his genetic blood test done and she had not had hers done yet. His indicated that there was increased risks for some challenges and so she had along with him a genetics consult at [facility] that we arranged and she is going to be getting her blood work done and is awaiting those results she says she has an anxious person and does have anxiety about the possible results especially since some of them can contribute to schizophrenia however she is going to try and not worry about it until she sees if there is something to worry about because if her testing is negative then the will be anything to worry about. She says she is also getting full genetic screening as part of this evaluation so the panorama will not be done through our lab. Accordingly she has not been able to think about where she might want to receive care and delivery because the decision may be made for her depending on the outcomes of any of this genetic evaluation. She will cross that bridge later. I reviewed her normal blood test findings thus far. FHT was strong and steady at 170. Physical exam was within normal limits slightly limited by physical tension with pelvic but within normal limits. Discussed the challenges of awaiting results of testing that can raising anxiety and the lack of control 1 has over outcomes. She is planning on having the same attitude about as well in that she knows it will be mostly out of her control and she is hoping for a healthy mother and baby. We will see her in 4 weeks and by then she will of had her nuchal translucency and genetic testing and follow-up with genetics as well. Visit Date: 08/14/23 Last Updated by: Camryn Rodriguez Yumi is here for rn neonatal icu. She is a 32 yo with LMP 05/25/23 and FABIO 03/03/24 GA 11w2d. US on 07/18/23 at 6w2d gives FABIO 03/10/24 and [id number]. Pt was given the folder. We discussed danger signs, MD availability 23/12 and how to reach on-call provider on weekends, holidays and nights for urgent issues. Pt advised all deliveries will be at [facility] since our Birthing Center has closed. In addition, ultrasounds will also take place at [facility]. labs were ordered and pt will have them done today. Next visit will be for OB PE. Pt did sign records release as she is thinking about transferring her care to [facility]. She does not know which practice at [facility] at this time. Yumi is scheduled for Genetics consult at [facility] 08/19/23 @ 1400 which she is aware of already. Pt and her were seen by [facility] for one visit. Her started genetic testing and some issues were found. Yumi found out she was before she started testing and was never tested. Letter from [facility] in pt's chart. First trimester education reviewed. Pt verbalizes understanding and agrees with plan. No further questions. Results AMB Urinalysis, Automated UA Leukoctes 0 Marianne/uL Last Edit by Gracy Mccullough, YASMEEN on 09/23/23 14:21 UA Nitrite Negative Last Edit by Gracy Mccullough, LICENSED LAND SURVEYOR on 09/23/23 14:21 UA Urobilinogen 0 mg/dL Last Edit by Gracy Mccullough, LICENSED LAND SURVEYOR on 09/23/23 14:21 UA Protein 0 mg/dL Last Edit by Gracy Mccullough, LICENS[employer] LAND SURVEYOR on 09/23/23 14:21 UA pH 6.0 Last Edit by Gracy Mccullough, LICENS[employer] LAND SUR[employer]YOR on 09/23/23 14:21 UA Blood 0 Jason/uL Last Edit by Gracy Mccullough, LIC[employer]AND SUR[employer]OR on 09/23/23 14:21 UA Specific [place] 1.025 Last Edit by Gracy Mccullough, LICENS[employer] LAND SUR[employer]YOR on 09/23/23 14:21 UA Ketone Negative Last Edit by Gracy Mccullough, YASMEEN on 09/23/23 14:21 UA Bilirubin 0 mg/dL Last Edit by Gracy Mccullough, LIC[employer]AND SUR[employer]OR on 09/23/23 14:21 UA Glucose 0 mg/dL Last Edit by Gracy Mccullough, [facility] on 09/23/23 14:21 Coding Level of Care Code Chris Diagnoses History of anxiety Z86.59 Early stage of Z34.90 Encounter for supervision of normal first , unspecified trimester Z34.00 Hx of infertility 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 Ultrasound for dating ordered by BM done 07/18/2023 yielded 6 weeks and to sevens with an FABIO of 03/10/2024. Patient states that her 's genetic testing revealed some issues for which she would need to have testing and counseling as well. We will refer to genetic counseling in order panoramic and nuchal translucency ultrasound a sap so done in a timely fashion. Patient may be seeking care at [facility]. Code(s): Z34.90 - Encounter for supervision of normal , unspecified, unspecified trimester Category: Medical (3) Encounter for supervision of normal first , unspecified trimester: Code(s): Z34.00 - Encounter for supervision of normal first , unspecified trimester Category: Medical (4) Hx of infertility: Code(s): Z87.42 - Personal history of other diseases of the female genital tract Category: Medical (5) Wilsons disease: Comment: NOTE PATIENT DOES NOT HAVE THIS, (but there is no code for being carrier,): Patient and her partner are both carriers so there has a 1 in 4 chance of the fetus being affected-see full genetics consult... Based on this [facility] consult ordered and patient is initiating transfer of care to [facility]... Code(s): E83.01 - Riley's disease Category: Medical Orders: Orders AMB Urinalysis Automated Today Z34.00 - Encounter for supervision of normal first , unspecified trimester US OB /maternal detail Today E83.01 - Riley's disease, Z34.00 - Encounter for supervision of normal first , unspecified trimester, Z34.90 - Encounter for supervision of normal , unspecified, unspecified trimester, Z86.59 - Personal history of other mental and behavioral disorders, Z87.42 - Personal history of other diseases of the female genital tract Referrals Maternal- Medicine Referral E83.01 - Riley's disease, Z34.00 - Encounter for supervision of normal first , unspecified trimester, Z34.90 - Encounter for supervision of normal , unspecified, unspecified trimester, Z87.42 - Personal history of other diseases of the female genital tract
[2023-09-23 14:10] VITALS: BP 122/64; BMI 27.8
== END 2023-09-23 14:56 | disposition home or self-care (01) ==
PROVIDERS: PCP Internal Medicine; Visit Provider Advanced Practice Midwife
DX: Z86.59 Personal history of other mental and behavioral disorders (principal); Z34.90 Encounter for supervision of normal pregnancy, unspecified, unspecified trimester; Z34.00 Encounter for supervision of normal first pregnancy, unspecified trimester; Z87.42 Personal history of other diseases of the female genital tract; E83.01 Wilson's disease
CPT/HCPCS: 25942; 99213

== ENCOUNTER → 2023-09-23 13:58 | Outpatient (BNVA) | payer OTHER, SELFPAY | PROVIDERS: PCP Internal Medicine; Visit Provider Advanced Practice Midwife | DX: Z34.02 Encounter for supervision of normal first pregnancy, second trimester (principal); Z86.59 Personal history of other mental and behavioral disorders; Z14.8 Genetic carrier of other disease | CPT/HCPCS: 81003; 99212 ==

== ENCOUNTER 2025-05-20 15:06 | Outpatient (REF) | payer SELFPAY ==
--- OUTSIDE RECORDS SUMMARY | 2025-05-20 16:35 | XMS_ITS ---
Author Name [facility] Organization Unknown Care Team Organization Name Specialty Phone Email Start Date End Da te [facility] Sara Pang Primary Care 04/09/2022 01/19/2024
== END 2025-05-20 15:07 | disposition home or self-care (01) ==
LOC: HO.LNP 15:06
PROVIDERS: PCP Internal Medicine; Visit Provider Advanced Practice Midwife
DX: Z01.419 Encounter for gynecological examination (general) (routine) without abnormal findings (principal); Z30.09 Encounter for other general counseling and advice on contraception; Z11.51 Encounter for screening for human papillomavirus (HPV); O75.82 Onset (spontaneous) of labor after 37 completed weeks of gestation but before 39 completed weeks gestation, with delivery by (planned) cesarean section; E83.01 Wilson's disease; Z87.42 Personal history of other diseases of the female genital tract; Z79.899 Other long term (current) drug therapy
CPT/HCPCS: 87626; 88175

== ENCOUNTER 2025-05-20 15:06 | Outpatient (AMB) | payer OTHER, SELFPAY ==
--- OUTSIDE RECORDS SUMMARY | 2021-12-10 15:21 | XMS_ITS | Encounter Summary ---
Author Organization [facility] Address [address] [place] [id number] Phone Care Team Providers Care Group Supervisor Yard Name Role Phone Sara Pang MD Primary Care Provide r Encounter Details Date Type Department Care Team (Late st Contact Info) Description 12/10/2021 4:21 PM EDT Hospital Encounter [facility] [address] [place] [id number] Emma Payan FNP [address] [place] [id number] [email or web address] Social History Tobacco Use Types Packs/Day Years Used Date Smoking Tobacco: Never Smokeless Tobacco: Never Education Answer Date Recorded Are you interested in more education? Not on nida e 09/28/2022 Are you concerned about learning? Not on file 09/28/2022 No 09/28/2022 No 09/28/2022 Digital Access Answer Date Recorded No 10/26/2022 No 10/26/2022 No 10/26/2022 Reliable internet access at home? Not on file 10/26/2022 Device with a working camera? Not on file Comments Unknown Sex and Gender Information Value Date Recorded Sex Assigned at Female 10/06/2020 10:51 AM EDT Legal Sex Female 10:40 AM EDT Gender Identity Female 10/06/2020 10:51 AM EDT Sexual Orientation Choose not to disclose 2020 10:51 AM EDT documented as of this encounter Plan of Treatment Not on file documented as of this encounter Procedures Procedure Name Priority Date/Time Associated Diagnosis Comments XR ANKLE 3 OR MORE VIEWS (RIGHT) Urgent/patient waiting 12/10/2021 4:26 PM EDT Sprain of right ankle, unspecified ligament, initial encounter documented in this encounter Results * XR ANKLE 3 OR MORE VIEWS (RIGHT) (12/10/2021 4:26 PM EDT) Anatomical Region Laterality Modality Ankle Right Computed Radiogr aphy 12/10/2021 4:34 PM EDT Impressions 12/10/2021 4:35 PM EDT No fracture or dislocation. Narrative 12/10/2021 4:35 PM EDT XR ANKLE 3 OR MORE VIEWS (RIGHT) COMPARISON: None FINDINGS: No fracture. Normal alignment. Symmetric ankle mortise. Normal joint spaces. Diffuse surrounding soft tissue swelling. No effusion. Procedure Note Lucy Artis MD - 12/10/2021 XR ANKLE 3 OR MORE VIEWS (RIGHT) COMPARISON: None FINDINGS: No fracture. Normal alignment. Symmetric ankle mortise. Normal jointspaces. Diffuse surrounding soft tissue swelling. No effusion. IMPRESSION: No fracture or dislocation. Emma Payan REINSTATEMENT CLERK IMG XR LOWER EXTREMITY Latasha l Result documented in this encounter Visit Diagnoses Not on filedocumented in this encounter Care Teams Group Supervisor Yard Relationship Specialty Start Date End Date Sara Pang MD [facility] [place] [address] PCP - General 10/06/20 01/06/24 documented as of this encounter Additional Source Comments The information contained in this document represents components of the legal health record. It is not the complete legal health record.[facility]
--- OUTSIDE RECORDS SUMMARY | 2025-05-19 15:00 | XMS_ITS | Encounter Summary ---
Author Organization [facility] [place] [address] Care Team Providers Care Merchandising Stock Associate Name Role Phone Carly Gamez MD Primary Care Provider [phone] Reason for Visit * Reason Comments Anxiety Depression Encounter Details Date Type Department Care Team ([facility] st Contact Info) Description 05/19/2025 3:00 PM EST Office Visit Adult Medicine [facility] [address] [place] [address] Carly Gamez MD [address] [place], [place] Anxiety and depression (Primary Dx) Social History Tobacco Use Types Packs/Day Years Used Date Smoking Tobacco: Never Smokeless Tobacco: Never Tobacco Cessation:Counseling Given: Not Answered Alcohol Use Standard Drinks/Week Comments Not Currently 0 (1 standard drink = 0.6 oz pur e alcohol) Housing Instability Answer Date Recorde d Are you worried that in the next 2 months you may not have stable housing? No 11/16/2024 Food Access & Nutrition Answer Date Rec orded Do you have access to a vari ety of food including fruits and vegetables? Yes 11/16/2024 Access to Healthcare Answer Date Record ed Within the last 3 months, ho w many times did you visit the emergency department for your medical care? 0 11/16/2024 Health Literacy Answer Date Recorded How often do you need to hav e someone help you when you read instructions, pamphlets, or other written material from your doctor or pharmacy? Never 11/16/2024 Caregiver: How often do you need to have someone help you when you read instructions, pamphlets, or other written material from your doctor or pharmacy? Not on file 11/16/2024 Financial Risk Answer Date Recorded How hard is it for you to pa y for the very basics like food, housing, medical care, and air conditioning / heating? Not very hard 11/16/2024 Transportation Answer Date Recorded Has the lack of transportati on kept you from meetings, work, or from getting things needed for daily living? No Has the lack of transportati on kept you from medical appointments or from getting medications? No 11/16/2024 Social Isolation Answer Date Recorded How often do you feel lonely or isolated from th ose around you? Rarely 11/16/2024 Food Risk Answer Date Recorded Within the past 12 months we worried whether our food would run out before we got money to buy more. Never true 11/16/2024 Within the past 12 months th e food we bought just didn't last and we didn't have money to get more. Never true 11/16/2024 Dependent Care Answer Date Recorded Do you need help finding or paying for care for your loved ones. For example, child welfare specialist or elderly care for an older adult? No 11/16/2024 Education Answer Date Recorded Do you think completing more education or training, like finishing a GED, going to college, or learning a trade, would be helpful for you? N/A 11/16/2024 Employment and Income Answer Date Recor ded During the last four weeks, have you been actively looking for work? Yes 11/16/2024 Living Situation Answer Date Recorded What is your living situation? Unrecognized valu e 11/16/2024 Comments Unknown Sex and Gender Information Value Date Recorded Sex Assigned at Not on file Legal Sex Female 10:00 AM EST Gender Identity Not on file Sexual Orientation Not on file documented as of this encounter Last Filed Vital Signs Vital Sign Reading Time Taken Comments Blood Pressure 100/50 05/19/2025 3:00 PM EST Pulse 81 05/19/2025 3:00 PM EST Temperature 35.9 C (96.6 F) 05/19/2025 3:00 PM EST Respiratory Rate 14 05/19/2025 3:00 PM EST Oxygen Saturation 98% 05/19/2025 3:00 PM EST Inhaled Oxygen Concentration - - Weight 66.9 kg (147 lb 6.4 oz) 05/19/2025 3:00 P M EST Height 157.5 cm (5' 2 ) 05/19/2025 3:00 PM EST Body Mass Index 26.96 05/19/2025 3:00 PM EST documented in this encounter Ordered Prescriptions Prescription Sig Dispense Quantity Refills Last Filled Start Date End Date escitalopram (LEXAPRO) 10 mg tablet Take 1 tablet (10 mg total) by mouth 1 (one) time each day. 90 each 1 05/19/2025 11/15/2025 documented in this encounter Progress Notes * Carly Gamez MD - 05/19/2025 3:00 PM EST Chief Complaint: Chief Complaint Patient presents with Anxiety Depression IDENTIFIER: Luna Carlson is a 34 y.o. old female HPI She comes for evaluation with anxiety and depression. She most recently has been taking sertraline which was started when she was , she was switched off Lexapro, to the sertraline. She is no longer and not planning another at this time and feels the Lexapro worked better and she would like to switch back to the Lexapro. She does note when she had lab work done in November at her liver enzymes were mildly elevated and she recently purchased life insurance, lab work was done showing the liver enzymes were normal. She has already had her flu vaccine. 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 Medications: Medications Taking[3] Medication Discontinued/Reordered: Medications Discontinued During This Encounter Medication Reason sertraline (ZOLOFT) 50 mg tablet Vitals: Blood pressure 100/50, pulse 81, temperature 35.9 ??C (96.6 ??F), temperature source Temporal, resp. rate 14, height 1.575 m (62 ), weight 66.9 kg (147 lb 6.4 oz), SpO2 98%, currently . Body mass index is 26.96 kg/m??.Plan is deferred until next visit Physical Exam: General: patient is in no acute distress. Neck supple without adenopathy, no thyromegaly. Lungs clear with auscultation. Heart: regular S1S2 without murmur, rub or gallop. Extremities without cyanosis, clubbing or edema. Labs: Lab Results Component Value Date NA 140 12/22/2024 K 4.8 12/22/2024 CL 109 12/22/2024 CO2 25 12/22/2024 GLUCOSE 93 12/22/2024 BUN 16 12/22/2024 CREATININE 0.93 12/22/2024 CALCIUM 9.7 12/22/2024 PROT 6.9 12/22/2024 ALBUMIN 4.1 12/22/2024 BILITOT 0.4 12/22/2024 AST 123 (H) 12/22/2024 ALT 85 (H) 12/22/2024 ALKPHOS 124 (H) 12/22/2024 EGFR 84 12/22/2024 Impression: 1. Anxiety and depression Assessment and Plan: She is not nor trying to conceive, will taper her off the sertraline and start on Lexapro 10 mg daily. She will keep her July appointment, if needed the Lexapro can be increased at that time. She reports her liver enzymes have normalized, we will be rechecking this at her July visit as well. Myself and my colleagues have maintained a long-term, longitudinal relationship with this patient, overseeing care of chronic conditions including anxiety and depression. This care relationship has significantly influenced my decision making and treatment plans during today's encounter. [1] Past Surgical History: Procedure Laterality Date OTHER SURGICAL HISTORY PROCEDURE: DENIES PREVIOUS SURGERY [2] Family History Problem Relation Name Age of Onset Colon cancer Maternal Grandfather in his 50s Colon cancer Mother's Sister diagnoses 68 Breast cancer Neg Hx [3] Outpatient Medications Marked as Taking for the 05/19/25 encounter (Office Visit) with Carly Gamez MD Medication Sig Dispense Refill [DISCONTINUED] sertraline (ZOLOFT) 50 mg tablet Take 1 tablet (50 mg total) by mouth 1 (one) time each day. 90 tablet 0 documented in this encounter Plan of Treatment Upcoming Encounters Date Type Department Care Team (Late st Contact Info) Description 07/20/2025 3:00 PM EST Office Visit Adult Medicine [facility] [address] [place] [address] Carly Gamez MD [address] [place] [address] documented as of this encounter Visit Diagnoses Diagnosis Anxiety and depression- Primary documented in this encounter Discontinued Medications Medication Sig Discontinue Reason Start Date End Da te sertraline (ZOLOFT) 50 mg tablet Take 1 tablet (50 mg total) by mouth 1 (one) time each day. 02/15/2025 05/19/2025 documented as of this encounter Additional Health Concerns Assessment Noted Time PHQ-9 Depression Total Score: 0 11/17/19 11:14 AM EDT documented as of this encounter Care Teams Merchandising Stock Associate Relationship Specialty Start Date End Date Carly Gamez MD [address] [place] [address] PCP - General Internal Medicine 05/30/21 documented as of this encounter
[2025-05-20 15:09] VITALS: BP 106/62; BMI 25.6
--- NOTE | 2025-05-20 15:09 | A.OFFVIS_ITS ---
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 Intake Note: here for Shutdown Planner annual Information Interpreted: non-clinical & clinical Kitchen Helper: Kitchen Helper Present (lolis) Accompanied by: Self / Same As Patient Allergies No Known Allergies Allergy (Verified 05/20/25 15:10) Medication List - Last Reconciled 05/20/25 by Mery Carbajal LPN norethindrone (contraceptive) 0.35 mg PO DAILY sertraline 50 mg PO DAILY Is last menstrual period known: Yes (taking OCP continually) Last menstrual period: 03/16/25 Do you need a note to return to daycare/school/sports/work: No HPI HPI CARPET WINDER annual exam: Details: 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 She went to the [facility] office 1st and then drove here. She delivered her baby by 1 year ago at [facility]. She was in early labor with ruptured membranes for quite a while and then her labor was induced but she never got beyond 6 cm and then it had been 30 hours in labor and she asked for but then there were 7 people ahead of her waiting for a . Then the baby's heart rates showed signs of distress so she had a . She feels like it was not the best experience. 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 She is still and doing well with it not having any difficulty at all. 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 She has fit and on multivitamins. She is also on norethindrone OCPs and takes them continuously and has no difficulty at all and she is also pretty clear she does not want to have anymore children but she is fine with taking a pill every day. She works out on her [employer] bike every day and loves it.. [facility] Medical History (Updated 05/20/25 @ 15:49 by Shirley Tobin CNM) Encounter for supervision of normal first , unspecified trimester Irregular menses History of depression History of anxiety Family History (Updated 05/20/25 @ 15:16 by Mery Carbajal LPN) Maternal Grandfather Colon cancer Type 1 diabetes mellitus Family/Other Breast cancer Father Graves disease Mother Acute anxiety Maternal Aunt Colon cancer Social History Household Members: Spouse Both parents involved: Yes Housing: House Are you a primary infant caregiver to a significant other at home: No Do you presently have visiting nurse or other home services: No 75 years or older and lives alone: No Alcohol intake: former Comment: stopped with dx Patient Tobacco Use Status: Never used Tobacco Agree to transfusion: Yes service: No 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 w/children Current occupational exposures/hazards: No Sexual orientation: Straight/Heterosexual Gender identity: Female Female Reproductive History Menstrual Age of Menarche: 16 Date of last menstrual period: 03/16/25 Physical Exam Vital Signs: Last Vital Signs BP 106/62 05/20/25 15:09 BMI result Body Mass Index 25.6 Const General: healthy appearing, comfortable, no acute distress, well developed and alert Nutritional Appearance: average body habitus Orientation/consciousness: patient oriented x3 Limitations: no limitations HEENT Head: Yes normocephalic Neck Neck: Yes normal visual inspection Chest Chest palpation & inspection: normal inspection of the chest Breast/axilla inspection: normal inspection of the breasts and normal inspection of the axillae Breast/axilla palpation: normal palpation of the breasts and normal palpation of the axillae Resp Effort & Inspection: normal respiratory effort GI Inspection: Yes normal to inspection, No Abdominal wall edema and No distended Palpation (GI): Soft to palpation and nontender Other: External exam within normal limits vagina pink and moist and healthy appearing nulliparous cervix with small mucus plug consistent with consistent OCP use. Cervix is long close thick mobile nontender uterus midposition to anteverted mobile nontender adnexa nontender good tone with Kegel General: Yes bladder normal to palpation External Female Exam: normal external appearance and normal appearance of the urethra Speculum Exam - Vagina: normal appearance of the vagina, normal palpation and normal vaginal discharge Speculum Exam - Cervix: normal appearance of the cervix, normal palpation and nontender Bimanual exam- vagina & uterus: normal bimanual exam, normal palpation, uterine size normal, bladder normal to palpation, consistency normal, normal palpation, uterine mobility normal, uterine shape normal, No Cervical tenderness present, non-tender and no cervical motion tenderness Bimanual Exam- Adnexa, other: normal adnexae, no masses, normal and No adnexal tenderness Neuro General: patient oriented x3 Results Reviewed Results Reviewed: Name: Luna Carlson Age/Sex: 32/F Attending: Juana Vaca CNM : 1990 Submitted by: Juana Vaca CNM Copies to: Carly Gamez MD MR #: [id number] Status: DEP REF Collected: 12/19/22 Location: [facility] Received: 12/24/22 Interpretation Satisfactory for evaluation. Negative for intraepithelial lesion or malignancy. Clinical Information LMP: 10/06/22 Previous PAP test: 10/27/19, WNL Material Received ThinPrep-Cervical Copies To Juana Vaca CNM [address] [place] [address] [place] [address] Carly Gamez MD [address] [place] [address] Electronically Signed By: Shahana Macdonald 01/05/23 3193 The Pap Test is a screening procedure with the inherent possibility of both false negative and false positive results. Results should be interpreted in the context of historic and current clinical findings. Reliability of the Pap Test is enhanced by performing the test on a regular repetitive basis. Patient: Luna Carlson Age/Sex: 32/F MR#: [id number] Page 1 of 1 Assessment & Plan Assessment & Plan (1) Hx of infertility: Comment: Made appointment at IVF in [place] but got on her own. 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 Based on this [facility] consult ordered and patient is initiating transfer of care to [facility]...; 05/19/2025. She and her and her baby are all carriers but they are all fine. 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 (is nursing her 1-year-old) Code(s): Z30.09 - Encounter for other general counseling and advice on contraception Category: Medical (6) Lactating mother: Code(s): Z39.1 - Encounter for care and examination of lactating mother Category: Medical (7) Delivery by section at 37-39 weeks of gestation due to labor: Code(s): O75.82 - Onset (spontaneous) of labor after 37 completed weeks of gestation but before 39 completed weeks gestation, with delivery by (planned) section Category: Medical Plan -----Discussed in this visit the following: healthy balanced diet, regular and consistent exercise, getting recommended health screens, doing the best she can for her particular health concerns, kegel exercises, pap smear screening and followup recommendations, mammography screening and SBE, normal changes in cycles in her life stage--- . Reviewed that if this Pap smear is negative with negative HPV code testing she will not need another Pap smear for 5 years. Reviewed her control she is very clear she does not want to have anymore babies. However she is fine staying on the control pills so has no interest in seeking a tubal ligation I did discuss that she would need to be very clear that she was 100% certain and because she is young it would be quite a conversation around certainty. Discussed options for childbirth currently in the [place] which include [facility]. She is on the multivitamins daily she works out and takes care of herself and is nursing her baby and is also working.. Her [id number] and her neighbor share the childcare while she is working. I will refill her control pills which she wants to stay on for another year and we will see her in 1 year. Orders: Orders HPV High risk Today Z11.51 - Encounter for screening for human papillomavirus (HPV) Pap Smear Today Z12.4 - Encounter for screening for malignant neoplasm of cervix Medications: Changed From norethindrone (contraceptive) Patient to be seen in May for her 1st visit in ( ) in this system... 0.35 mg PO DAILY 84 tabs 0RF To norethindrone (contraceptive) 0.35 mg PO DAILY 84 tabs 4RF Coding Level of Care Code Est Pt Prev Care 18-39y(96188) Diagnoses Hx of infertility Z87.42 Wilsons disease E83.01 Well woman exam with routine gynecological exam Z01.419 Screening for malignant neoplasm of cervix Z12.4 control counseling Z30.09 Lactating mother Z39.1 Delivery by section at 37-39 weeks of gestation due to labor O75.82
--- OUTSIDE RECORDS SUMMARY | 2025-05-20 16:19 | XMS_ITS | Clinical Summary ---
Author Organization [facility] Address [address] [place] [address] Care Team Providers Care Surveillance Dual Rate Officer Name Role Phone Jose Caba MD, Johnathon Ortega Primary Care Provider [phone] Allergies No known active allergies Medications Oral Contraceptive per State Formulary ( CONTROL) tablet Take 1 tablet by mouth daily. Take 1 tablet by mouth daily as directed. Dispense Brand per State Formulary. Active Social History Tobacco Use Types Packs/Day Years Used Date Smoking Tobacco: Unknown Smokeless Tobacco: Never Comments Unknown Sex and Gender Information Value Date Recorded Sex Assigned at Not on file Legal Sex Female 5:41 PM EDT Gender Identity Not on file Sexual Orientation Not on file Last Filed Vital Signs Vital Sign Reading Time Taken Comments Blood Pressure 136/77 07/03/2017 8:49 PM EST Pulse 99 07/03/2017 8:49 PM EST Temperature 36.9 C (98.4 F) 07/03/2017 8:49 PM EST Respiratory Rate 17 07/03/2017 8:49 PM EST Oxygen Saturation 98% 07/03/2017 8:49 PM EST Inhaled Oxygen Concentration - - Weight 58.1 kg (128 lb) 07/03/2017 8:49 PM EST Height 157.5 cm (5' 2 ) 07/03/2017 8:49 PM EST Body Mass Index 23.41 07/03/2017 8:49 PM EST Plan of Treatment Health Maintenance Due Date Last Done Comments Hepatitis C Virus Screening 1992 HIV Screening 2005 DTaP/Tdap/Td Vaccines (1 - Tdap) 12/21/2011 Hepatitis B Vaccines (1 of 3 - 19+ 3-dose series) 12/21/2011 Pap Smear (Ages 21-65) 08/19/2021 9, 08/14/2017 Influenza Vaccine 12/31/2024 COVID-19 Vaccine (2024-2 6 season) 2025 HPV Vaccines (No Doses Required) Completed Pneumococcal Vaccine: Pediatric (0-5 Years) and At-Risk Patients (6 to 49 Years) Aged Out No longer eligible b ased on patient's age to complete this topic Procedures Procedure Name Priority Date/Time Associated Diagnosis Comments THINPREP PAP TEST (TIMING ADJUSTER) WITH HPV REFLEX, GC/CT Routine 08/19/2018 12:00 AM EDT from Last 3 Months or Most Recently Relevant to Health Maintenance Results * ThinPrep Pap Test (Contact Center Assistant) with HPV Reflex, GC/CT (08/19/2018 12:00 AM EDT) Clinical Information None given [facility] LMP: NA [facility] Previous PAP: NA [facility] Previous Biopsy NA [facility] Source: [facility] Comment:Cervix, Endocervix Statement of Adequacy: [facility] Comment: Satisfactory for evaluation. Endocervical/transformation zone component present. Interpretation/Res ult: [facility] Comment:Negative for intraep ithelial lesion or malignancy. Comment: [facility] Comment: This Pap test has been evaluated with computer assisted technology. Clinical Program Manager: [email or web address] Comment: GSG, CT(ASCP) CT screening location: [place] [address] Comment [facility] Comment: EXPLANATORY NOTE: The Pap is a screening test for cervical cancer. It is not a diagnostic test and is subject to false negative and false positive results. It is most reliable when a satisfactory sample, regularly obtained, is submitted with relevant clinical findings and history, and when the Pap result is evaluated along with historic and current clinical information. Chlamydia Trachomatis RNA, TMA NOT DETECTED NOT DETECTED [facility] Neisseria Gonorrhoeae RNA, TMA NOT DETECTED NOT DETECTED [facility] Chlamydia Trachomatis RNA, TMA Comment [facility] Comment: This test was performed using the APTIMA COMBO2 Assay ([employer] The analytical performance characteristics of this assay, when used to test SurePath specimens have been determined by [facility]. 08/19/2018 08/20/2018 12: 15 AM EDT Narrative [facility] - 08/22/2018 11:50 AM EDT Ordered by External Provider. [id number], KATHERIN GUPTA, Adam Resulting Agency Comment Performing Organization Information: Site ID: [id number] Name: [facility] Address: [address] [place] [address], [place] [address] Director: Mehnaz Gurrola MD External Provider LAB AMB PATH/CYTO ORDERABLE S Final Result [facility] [address], [place] [address] from Last 3 Months or Most Recently Relevant to [place] [address] [place] [address] [facility] PPO Care Teams Surveillance Dual Rate Officer Relationship Specialty Start Date End Date Johnathon Garcia Jr., MD PCP - General Internal Medicine 07/03/17
--- OUTSIDE RECORDS SUMMARY | 2025-05-20 16:19 | XMS_ITS | Encounter Summary ---
Author Organization [facility] Address [address] [place] [address] Care Team Providers Care Pay Per Click Strategist Name Role Phone Unavailable Primary Care Provider Unavailabl e Encounter Details Date Type Department Care Team (Late st Contact Info) Description 10/16/2023 [facility] - [facility] [address] [facility] [address] [place], [place] [id number] Jyoti Kumar MD [address] [place] [address] Social History Tobacco Use Types Packs/Day Years Used Date Smoking Tobacco: Never Assessed Comments Unknown Sex and Gender Information Value Date Recorded Sex Assigned at Not on file Legal Sex Female 5:28 PM EST Gender Identity Not on file Sexual Orientation Not on file documented as of this encounter Plan of Treatment Not on file documented as of this encounter Visit Diagnoses Not on filedocumented in this encounter
--- OUTSIDE RECORDS SUMMARY | 2025-05-20 16:19 | XMS_ITS | Clinical Summary ---
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 Social History Tobacco Use Types Packs/Day Years Used Date Smoking Tobacco: Never Assessed Comments Unknown Sex and Gender Information Value Date Recorded Sex Assigned at Not on file Legal Sex Female 5:28 PM EST Gender Identity Not on file Sexual Orientation Not on file Plan of Treatment Health Maintenance Due Date Last Done Comments HIV screening 2005 Hepatitis C screening 2010 Tetanus adult (Td q 10,TDAP once) 2012 Cervical cancer screening 08/19/2021 08/19/2018 Influenza vaccine 12/31/2024 Covid-19 vaccine series (2024- season) 2025 RSV Immunization (1 - 1-dose 75+ series) 12/21/2067 Meningococcal B Vaccine Aged Out No l onger eligible based on patient's age to complete this topic Meningococcal Vaccine Aged Out No bob justin eligible based on patient's age to complete this topic Pneumococcal Vaccine (2 - 49 years) Aged Out No longer eligible b ased on patient's age to complete this topic Insurance [facility] R UMR
--- OUTSIDE RECORDS SUMMARY | 2025-05-20 16:19 | XMS_ITS | Clinical Summary ---
Author Organization [facility] [address] [facility] Address [address] [place] [address] Phone Care Team Providers Care Instrument Engineer Name Role Phone Carly Gamez MD Primary Care Provider Allergies No known active allergies Medications norethindrone (GUS,PALMER,H EATHER,MICRONOR ) 0.35 mg tablet Take 1 tablet (0.35 mg total) by mouth 1 (one) time each day. 5 Active escitalopram (LEXAPRO) 10 mg tablet Take 1 tablet (10 mg total) by mouth 1 (one) time each day. 90 each 1 5 11/16/19 26 Active sertraline (ZOLOFT) 50 mg tablet Take 1 tablet (50 mg total) by mouth 1 (one) time each day. 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 Anxiety and depression 10/28/2019 Encounters Date Type Department Care Team Description 05/19/2025 3:00 PM EST Office Visit Adult Medicine [facility] [address] [place], [place] [phone] Carly Gamez MD Anxiety and depression (Primary Dx) from Last 3 Months Immunizations Immunization Administration Dates Next Due Human Rabies, Chicken Fibrob last Cell Culture, (Rabavert) 01/14/2024,01/07/2024,01/04/2024,2023 Influenza, Unspecified 03/14/2024,07/04/2023 Pfizer SARS-CoV-2 COVID-19, mRNA, LNP-S, preservative free 04/04/2023,03/03/2023 Respiratory syncytial virus (RSV), unspecified 02/16/2024 Tdap Tetanus diptheria acell ular pertussis (Boostrix; Adacel) 7yo and older 01/01/2024 Surgical History Surgery Date Site/Laterality Comments OTHER SURGICAL HISTORY PROCEDURE: DENIES PREVIOUS SURGERY Medical History Medical History Date Comments Anxiety and depression 10/28/2019 Gestational hypertension 05/18/2024 Snoring 07/31/202107/2021 Home Slee p Study did not reveal sleep apnea or nocturnal hypoxia. Family History Medical History Relation Name Comments Colon cancer Maternal Grandfather in his 50s Colon cancer Mother's Sister diagnoses 68 Breast cancer Neg Hx Relation Name Status Comments Maternal Grandfather Mother's Sister Social History Tobacco Use Types Packs/Day Years [...] care for your loved ones. For example, childbirth and infant care teacher or elderly care for an older adult? [...] Mass Index 26.96 05/19/2025 3:00 PM EST Plan of Treatment Upcoming Encounters Date Type Department Care Team (Late st Contact Info) Description 07/20/2025 3:00 PM EST Office Visit Adult Medicine [facility] [address] [place], [place] [phone] Carly Gamez MD [address] [place], [place] Health Maintenance Due Date Last Done Comments Hepatitis B Vaccines (1 of 3 - 19+ 3-dose series) 12/21/2011 HPV Vaccines (1 - 3-dose SCDM series) 12/21/2019 HIV Screening 04/30/2022 Hepatitis C Screening 04/30/2022 COVID-19 Vaccine ( season) 2025 04/04/2023, 03/03/2023, 03/12/2021, Additional history exists Influenza Vaccine (#1) 2025 03/14/2024, 2023 Social Influencers of Health Screening 11/16/2025 11/16/2024 Cervical Cancer Screening: Pap Smear 12/09/2025 12/09/2022 Hypertension/CHF/CAD Annual BMP Blood Test 12/22/2025 12/22/2024, 08/11/2019 Cholesterol Screening (Lipid Panel) 12/22/2029 12/22/2024, 08/11/2019 DTaP,Tdap,and Td Vaccines (2 - Td or Tdap) 12/31/2033 01/01/2024 RSV Immunization Adult Patients (1 - 1-dose 75+ series) 12/21/2067 02/16/2024 RSV Immunization Patients Under 20 months Aged Out 02/16/2024 No longer eligible based on patient's age to complete this topic Depression Screening Completed 11/16/2024 HIB Vaccines Aged Out No longer eligi ble based on patient's age to complete this topic Hepatitis A Vaccines Aged Out No long er eligible based on patient's age to complete this topic IPV Vaccines Aged Out No longer eligi ble based on patient's age to complete this topic MMR Vaccines Aged Out No longer eligi ble based on patient's age to complete this topic Meningococcal ACWY Vaccine Aged Out N o longer eligible based on patient's age to complete this topic Meningococcal B Vaccine Aged Out No l onger eligible based on patient's age to complete this topic Pneumococcal Vaccine: Pediatrics (0 to 5 Years) and At-Risk Patients (6 to 49 Years) Aged Out No longer eligible based on patient's age to complete this topic Varicella Vaccines Aged Out No longer eligible based on patient's age to complete this topic Procedures Procedure Name Priority Date/Time Associated Diagnosis Comments COMPREHENSIVE METABOLIC PANEL Routine 12/22/2024 8:06 AM EDT Anxiety and depression LIPID PANEL WITH REFLEX TO DIRECT LDL Routine 12/22/2024 8:06 AM EDT Lipid screening HM PAP SMEAR Routine 12/09/2022 from Last 3 Months or Most Recently Relevant to Health Maintenance Results * (ABNORMAL) Lipid panel with reflex to direct LDL (12/22/2024 8:06 AM EDT) Cholesterol 204(H) 0 - 200 mg/dL LAB CHEMISTRY METHOD 12/22/2024 10:40 AM [facility] Triglycerides 90 0 - 150 mg/dL LAB CHEMISTRY METHOD 12/22/2024 10:40 AM [facility] HDL 79 >=40 mg/dL LAB CHEMISTRY METHOD 12/22/2024 10:40 AM [facility] LDL Calculated 107(H) 0 - 100 mg/dL LAB CHEMISTRY METHOD 12/22/2024 10:40 AM [facility] VLDL Cholesterol Ramakrishna 18 mg/dL LAB CHEMISTRY METHOD 12/22/2024 10:40 AM [facility] Non HDL Chol. (LDL+VLDL) 125 <145 mg/dL LAB CHEMISTRY METHOD 12/22/2024 10:40 AM [facility] Chol/HDL Ratio 2.6 0.0 - 4.4 LAB CHEMISTRY METHOD 12/22/2024 10:40 AM [facility] Blood Venous blood specimen / Unknown Venipuncture / Unknown 12/22/2024 8:06 AM EDT 12/22/2024 8:06 AM EDT us Narda STEPHENS LAB BLOOD ORDERABLES Final Re sult [facility] [address] [place] [address], [place] [phone] * (ABNORMAL) Comprehensive metabolic panel (12/22/2024 8:06 AM EDT) Sodium 140 133 - 145 mmol/L LAB CHEMISTRY METHOD 12/22/2024 10:40 AM [facility] Potassium 4.8 3.5 - 5.5 mmol/L LAB CHEMISTRY METHOD 12/22/2024 10:40 AM [facility] Chloride 109 96 - 110 mmol/L LAB CHEMISTRY METHOD 12/22/2024 10:40 AM [facility] CO2 25 21 - 32 mmol/L LAB CHEMISTRY METHOD 12/22/2024 10:40 AM [facility] Anion Gap 6 3 - 11 LAB CHEMISTRY METHOD 12/22/2024 10:40 AM [facility] Glucose 93 70 - 100 mg/dL LAB CHEMISTRY METHOD 12/22/2024 10:40 AM [facility] BUN 16 5 - 25 mg/dL LAB CHEMISTRY METHOD 12/22/2024 10:40 AM [facility] Creatinine 0.93 0.50 - 1.10 mg/dL LAB CHEMISTRY METHOD 12/22/2024 10:40 AM [facility] eGFR 84 >=60 mL/min/1. 73m2 LAB CHEMISTRY METHOD 12/22/2024 10:40 AM [facility] Comment:Calculation based on the Chronic Kidney Disease Epidemiology Collaboration (CKD-EPI) equation refit without adjustment for race. BUN/Creatinine Ratio 17.2 LAB CHEMISTRY METHOD 12/22/2024 10:40 AM [facility] Calcium 9.7 8.5 - 10.5 mg/dL LAB CHEMISTRY METHOD 12/22/2024 10:40 AM [facility] AST (SGOT) 123(H) 10 - 42 unit/L LAB CHEMISTRY METHOD 12/22/2024 10:40 AM [facility] ALT (SGPT) 85(H) 10 - 60 unit/L LAB CHEMISTRY METHOD 12/22/2024 10:40 AM [facility] Alkaline Phosphatase 124(H) 42 - 121 unit/L LAB CHEMISTRY METHOD 12/22/2024 10:40 AM [facility] Total Protein 6.9 6.0 - 8.0 g/dL LAB CHEMISTRY METHOD 12/22/2024 10:40 AM [facility] Albumin 4.1 3.2 - 5.0 g/dL LAB CHEMISTRY METHOD 12/22/2024 10:40 AM [facility] Total Bilirubin 0.4 0.0 - 1.4 mg/dL LAB CHEMISTRY METHOD 12/22/2024 10:40 AM [facility] Blood Venous blood specimen / Unknown Venipuncture / Unknown 12/22/2024 8:06 AM EDT 12/22/2024 8:06 AM EDT us Narda STEPHENS LAB BLOOD ORDERABLES Final Re sult [facility] [address] [place] [address], * Hm Pap Smear (12/09/2022) Pap smear Abstracted, no interpretation us Historical Provider HEALTH MAINTENANCE Final Result from Last 3 Months or Most Recently Relevant to Health Maintenance [place] [id number] [facility] Care Teams Instrument Engineer Relationship Specialty Start Date End Date Carly Gamez MD [address] [place] [address] PCP - General Internal Medicine 05/30/21
--- OUTSIDE RECORDS SUMMARY | 2025-05-20 16:19 | XMS_ITS | Clinical Summary ---
Author Organization [facility] Address [address] [address] Phone Care Team Providers Care Residential Leasing Manager Name Role Phone Carly Gamez MD Primary Care Provider [phone] Allergies No known active allergies Medications norethindrone-e thinyl estradiol (MICROGESTIN 06/21) 1-0.02 mg per tablet TAKE 1 TABLET BY MOUTH ONCE DAILY THEN STOP FOR A WEEK AND RESTART 2 Active ibuprofen (ADVIL,MOTRIN) 600 MG tablet Take 1 tablet (600 mg total) by mouth 3 (three) times a day for 3 days. Then tid prn pain/inflammatio n 30 tablet 2 Active vitamins with ferrous fumarate- folic acid ( MULTIVITAMINS) 28 mg iron- 800 mcg Tab Take by mouth. 4 Active sertraline 150 mg Cap See Instructions, 25 mg By Mouth, 0 Refills, Maintenance, 10/17/23 14:12:00 EDT, Partial fill upon patient request if the prescription is for a schedule II opioid drug. 4 Active Active Problems Problem Noted Date Diagnosed Date At increased risk for exposure to rabies virus 0 01/04/2024 Immunizations Immunization Administration Dates Next Due COVID-19 (Pre-03/24) Pfizer Vaccine, mRNA, PF 03/03/2023 Influenza Quadrivalent Prese rvative Free IM 07/04/2023 Rabies Fibroblast Culture 01/14/2024,12/2023,01/04/2024,2023 Rabies Immune Globulin 01/01/2024 Tdap 01/01/2024 Social History Tobacco Use Types Packs/Day Years [...] not to disclose 2020 10:51 AM EDT Last Filed Vital Signs Vital Sign Reading Time Taken Comments Blood Pressure 106/71 01/04/2024 11:13 AM EDT Pulse 108 01/04/2024 11:13 AM EDT Temperature 36.8 C (98.2 F) 01/01/2024 5:46 PM EDT Respiratory Rate 20 01/04/2024 11:13 AM EDT Oxygen Saturation 96% 01/04/2024 11:13 AM EDT Inhaled Oxygen Concentration - - Weight 73.9 kg (163 lb) 01/01/2024 5:47 PM EDT Height 157.5 cm (5' 2 ) 12/10/2021 4:02 PM EDT Body Mass Index 29.81 12/10/2021 4:02 PM EDT Plan of Treatment Health Maintenance Due Date Last Done Comments DEPRESSION SCREENING 2004 HEPATITIS C SCREENING 2010 HIV ONE-TIME SCREENING (18-65 YEARS) 2010 PAP SMEAR 2013 INFLUENZA VACCINE (#1) 2024 07/04/2023 COVID-19 VACCINE ( season) 2025 04/04/2023, 03/03/2023, 03/12/2021, Additional history exists Adult Td,Tdap Booster 12/31/2033 01/01/2024 SMOKING STATUS SCREENING (Once After 26 Yrs) Completed 12/10/2021 HEPATITIS A VACCINES Aged Out No long er eligible based on patient's age to complete this topic HIB VACCINES Aged Out No longer eligi ble based on patient's age to complete this topic MENINGOCOCCAL VACCINES (ACWY) Aged Out No longer eligible based on patient's age to complete this topic MENINGOCOCCAL VACCINES (B) Aged Out N o longer eligible based on patient's age to complete this topic PNEUMOCOCCAL VACCINES (0-49 years) Aged Out No longer eligible based on patient's age to complete this topic Medical Devices Not on file Insurance [address] [place], [place] [id number] [facility] Care Teams Residential Leasing Manager Relationship Specialty Start Date End Date Carly Gamez MD [address] [place] [address] PCP - General Internal Medicine 01/07/24 Additional Source Comments The information contained in this document represents components of the legal health record. It is not the complete legal health record.[facility]
--- OUTSIDE RECORDS SUMMARY | 2025-05-20 16:20 | XMS_ITS | Encounter Summary ---
Author Organization [facility] and [facility] Address [address] [place] [address] Care Team Providers Care Industrial Electrician Journeyman Name Role Phone Unavailable Primary Care Provider Unavailabl e Encounter Details Date Type Department Care Team (Late st Contact Info) Description 10/16/2023 Abstract [facility] [address] [facility] [address] [place], [place] [id number] Jyoti Kumar MD [address] [place] [address] Social History Tobacco Use Types [...]
--- OUTSIDE RECORDS SUMMARY | 2025-05-20 16:20 | XMS_ITS | Encounter Summary ---
Author Organization [facility] and [facility] Address [address] [place] [address] Care Team Providers Care Frame Pulley Mortising Machine Operator Name Role Phone Unavailable Primary Care Provider Unavailabl e Encounter Details Date Type Department Care Team (Late st Contact Info) Description 10/16/2023 Abstract [facility] [address] [facility] [address] [place], [place] [id number] Jyoti Kumar MD [address] [place] [address] Social History Tobacco Use Types [...]
--- OUTSIDE RECORDS SUMMARY | 2025-05-20 16:20 | XMS_ITS | Encounter Summary ---
Author Organization [facility] and [facility] Address [address] [place] [address] Care Team Providers Care Resource Recovery Specialist Name Role Phone Unavailable Primary Care Provider Unavailabl e Encounter Details Date Type Department Care Team (Late st Contact Info) Description 10/16/2023 Abstract [facility] - [facility] [address] [facility] [address] [place], [place] [id number] Jyoti Kumar MD [address] [place] [address] Social History Tobacco Use Types [...]
== END 2025-05-30 16:13 | disposition home or self-care (01) ==
LOC: HO.HWS 15:06
PROVIDERS: PCP Internal Medicine; Visit Provider Advanced Practice Midwife
DX: Z01.419 Encounter for gynecological examination (general) (routine) without abnormal findings (principal); Z87.42 Personal history of other diseases of the female genital tract; E83.01 Wilson's disease; Z12.4 Encounter for screening for malignant neoplasm of cervix; Z30.09 Encounter for other general counseling and advice on contraception; Z39.1 Encounter for care and examination of lactating mother; O75.82 Onset (spontaneous) of labor after 37 completed weeks of gestation but before 39 completed weeks gestation, with delivery by (planned) cesarean section
CPT/HCPCS: 99395; 99459